=== PATIENT | male | born 1985 | race Caucasian/White ===

== ENCOUNTER 2017-03-25 09:11 | Observation (INO) | payer OTHER ==
[2017-03-25 10:51] LABS: Hematocrit 49 % (42-52); Mean Corpuscular HGB Conc 33 g/dl (31-36); Mean Corpuscular Hemoglobin 31 pg (27-31); Mean Corpuscular Volume 93 fL (80-94); Mean Platelet Volume 10 um3 (7.4-10.4); Red Blood Count 5.25 10^6/ul (4.0-5.4); Red Cell Distribution Width 13 % (10.5-15); White Blood Count 16.6 10^3/ul (3.5-10.8)
[2017-03-25 10:53] LABS: Urine Bilirubin Negative (Negative); Urine Glucose 3+(>=500 mg/dL) (Negative); Urine Nitrite Negative (Negative)
[2017-03-25] MEDS ORDERED: NS 0.9% 1000 ML* 1,000 ML IV ONE ×2 (11:00→13:18)
[2017-03-25 11:01] LABS: ALT 17 U/L (7-52); AST 15 U/L (13-39); Albumin 4.1 g/dL (3.2-5.2); Alkaline Phosphatase 101 U/L (34-104); Amylase 40 U/L (29-103); Anion Gap 19 mmol/L (2-11); BUN/Creatinine Ratio 18.8 (8-20); Blood Urea Nitrogen 21 mg/dL (6-24); C Reactive Protein 3.72 mg/L (< 5.00); CO2 Carbon Dioxide 18 mmol/L (22-32); Calcium 9.6 mg/dL (8.6-10.3); Chloride 94 mmol/L (101-111); Globulin 3.2 g/dL (2-4); Lipase 10 U/L (11.0-82.0); Potassium 5.2 mmol/L (3.5-5.0); Sodium 131 mmol/L (133-145); Total Protein 7.3 g/dL (6.4-8.9)
[2017-03-25 11:02] LABS: Glucose 565 mg/dL (70-100)
[2017-03-25 11:37] LABS: Venous Bicarbonate HCO3 12.7 mmol/L (24-28)
--- NOTE | 2017-03-25 11:39 | RAD ---
INDICATION: Diabetes. Hyperglycemia COMPARISON: None TECHNIQUE: An AP portable view obtained at 1115 hours is submitted. FINDINGS: Bones/Soft Tissues: There are no acute bony findings. Cardiomediastinal: The cardiomediastinal silhouette is normal. Lungs: There are no infiltrates. Pleura: There are no pleural effusions. Other: None IMPRESSION: NORMAL CHEST
[2017-03-25] MEDS ORDERED: NS 0.9% 1000 ML* 1,000 ML IV SCH (12:30)
[2017-03-25] MEDS ORDERED: Ondansetron INJ* 2 MG/ML VIAL IV ONE (12:31)
[2017-03-25 13:15] LABS: Creatine Kinase 33 U/L (10-223)
[2017-03-25] MEDS ORDERED: Ondansetron INJ* 2 MG/ML VIAL IV PRN (13:17)
[2017-03-25] MEDS ORDERED: Acetaminophen TAB* 325 MG PO PRN (13:17)
[2017-03-25 13:19] LABS: Alcohol < 10 mg/dL (<10)
[2017-03-25 13:32] LABS: Benzodiazepine Urine Screen None Detected (None Detect)
[2017-03-25] MEDS ORDERED: D10W 1000 ML BAG* 1,000 ML IV PRN (13:54)
[2017-03-25] MEDS ORDERED: Dextrose 50% Syringe 50 ML* 25 GM/50 ML SYRINGE IV PUSH PRN (13:57)
[2017-03-25] MEDS: Nicotine PATCH 14 MG/24 HR* PATCH TRANSDERM SCH (14:29)
--- NOTE | 2017-03-25 15:54 | HP ---
CC: Dr. Bowen at the [place] office in [facility] MEDICINE HISTORY AND PHYSICAL: DATE OF ADMISSION: 03/25/17 PRIMARY CARE PHYSICIAN: Dr. Bowen. ATTENDING PHYSICIAN: Dr. Carolynn Thurman * (dictation provided by Aida Carson NP ). CHIEF COMPLAINT: Nausea, vomiting, and elevated blood glucose. HISTORY OF PRESENT ILLNESS: Mr. Omalley is a 31-year-old male with a past medical history of type 1 diabetes, who normally maintains his blood glucose with an insulin pump. Mr. 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 Yesterday he states that he had planned to have his insulin supplies brought to [facility] by his parents, but the supplies were not delivered per his expectation to his home and therefore he has been without his insulin supplies for 3 days. Normally he would maintain his blood glucose with q. 1 hour insulin administration when he did not have his pump; however, since arriving to [facility], they have been maintaining him on a q. 4 to 6-hour insulin subcu as needed. I note per their records that his blood glucose has been running as high as 600 yesterday. It also appears that he was not on his lantus based on the medication record provided. By last evening he had gotten his blood sugar down to about 200. He slept through the night, but when he awoke this morning he was very nauseous, he was vomiting; blood glucose again was high as almost 600. Therefore he was transitioned to the emergency room for evaluation. Mr. Omalley denies any other issues. He has had no fever, no chills, no chest pain , no shortness of breath, other than the nausea and vomiting that was noted this morning. He has not had previous nausea, vomiting, or abdominal pain. He has had no diarrhea. In the emergency room Mr. Omalley was confirmed to be in diabetic ketoacidosis. He has a anion gap of 19. His pH is 7.15, pCO2 42, pO2 29, with a bicarbonate of 12.7. He has an elevated white blood cell count to 16.6. His potassium is 5.2 with a sodium of 131, lactic acid 2.4. He is mildly tachycardic with a heart rate running about 110. His blood pressure is running systolically about 110/60. PAST MEDICAL HISTORY: 1. Type 1 diabetes. 2. Hand surgery after traumatic injury. MEDICATIONS: 1. Humalog insulin p.r.n. 2. Lantus 23 units subq. q AM. ALLERGIES: To PERTUSSIS VACCINE and SERTRALINE. FAMILY HISTORY: Patient reports that there is no history of type 1 diabetes in the family, although multiple family members have had type 2 diabetes. He states "all other people on my father's side related alcohol." He also reports that there is heart disease with from [place] in his father's father and his fathers' grandfather, who both in their 60s. His mother is alive and well. She would be his healthcare proxy, her name is Marina. SOCIAL HISTORY: The patient is a current half a pack a day smoker . He denies any issues with alcohol abuse but was previously addicted to methamphetamine. He states he has been clean for 3 weeks. REVIEW OF SYSTEMS: A 14-point review of systems was completed with Mr. Omalley , and all those not mentioned above were negative. PHYSICAL EXAMINATION GENERAL: Mr. Omalley is sitting up in the bed. He is in no acute distress. VITAL SIGNS: Temperature 98.7, heart rate 116, respiratory rate 20, O2 saturation 99% on room air, blood pressure 110/67. LUNGS: Clear to auscultation bilaterally with no accessory muscle use and good aeration. HEART: S1, S2. No murmur, rub or gallop and regular. ABDOMEN: Soft and nontender with bowel sounds positive x4. EXTREMITIES: No cyanosis, no edema. NEURO: He is alert. He is oriented x3. He moves all extremities equal. There is no facial asymmetry or focal weakness. Extraocular movements are intact. SKIN: Intact. LABORATORY DATA: WBC 16.6, hemoglobin 16.0, hematocrit 49, platelet count 260 , INR 0.83. PH 7.15, pCO2 42, pO2 29, bicarbonate 12.7. Sodium 131, potassium 5.2, chloride 94, serum bicarbonate 18, BUN 21, creatinine 1.12, anion gap 19, glucose 565, repeat check at 1 o'clock shows it to be 454. Lactic acid is 2.4. Lipase is 10, CRP 3.72. Urine shows 2+ ketones, 3+ glucose. Tox screen is negative. Chest x-ray shows a normal chest x-ray. EKG shows sinus tachycardia with no evidence of ischemia, but does show some prominent T-waves. ASSESSMENT AND PLAN: Mr. Omalley is a 31-year-old male with past medical history of type 1 diabetes, he checked himself into [facility] yesterday for methamphetamine addiction. He normally manages with an insulin pump, but did not have insulin supplies and therefore presents today with diabetic ketoacidosis. Our plans are for observation in the hospital for the followin. Diabetic ketoacidosis: Patient has mild diabetic ketoacidosis. I suspect that he will have good control of his glucose and resolution of anion gap quickly with intravenous fluids and insulin. He appears to have 1 L of IV fluids in the emergency room. We will continue with an additional liter and then he will have normal saline until his blood glucose falls below 200, and at that time we can switch over to D5 half-normal saline. He is currently on a regular insulin drip, we will continue with that with titration per protocol. His potassium is 5.2, plan to recheck in 4 hours. I see no other inciting reason for his diabetic ketoacidosis, other than the fact that he was not following his normal routine as he did not have his insulin supplies. I did speak with the patient about contacting his parents to have them bring his insulin supplies here to the hospital prior to discharge tomorrow. 2. Code Status: Full code. 3. DVT prophylaxis: Regular ambulation. 4. Disposition: To intensive care unit. TIME SPENT: Approximately 60 minutes was spent on the admission of this patient , more than half the time spent with her at the bedside reviewing the events leading up to this hospitalization, performing the physical examination, and reviewing the plan of care. AIDA CARSON, AUTUMN [id number]/CPS #: [id number] LORNE
[2017-03-25] MEDS ORDERED: D5NS 0.9% 1000 ML BAG* 1,000 ML IV SCH (16:51)
[2017-03-25] MEDS ORDERED: D5W 1/2 NS 1000 ML BAG* 1,000 ML IV SCH ×2 (17:00→18:14)
[2017-03-25 17:06] LABS: BUN/Creatinine Ratio 18.1 (8-20); Calcium 8.8 mg/dL (8.6-10.3); EGFR African American 106.7 (>60); EGFR Non-African American 82.9 (>60); Potassium 3.7 mmol/L (3.5-5.0)
--- NOTE | 2017-03-25 17:20 | ED ---
Maddi Rosario Alfonso, scribed for Elizabeth Hernandez MD on 03/25/17 at 1102 . Abdominal Pain/Male - HPI Summary HPI Summary: This patient is a 31 year old M BIBA from [facility] to [facility] with a chief complaint of lower abdominal pain since yesterday. He is at [facility] for methamphetamine abuse last used 2.5 weeks ago. He also reports prior oxycodone abuse. He did not have is insulin pump yesterday. The patient rates the pain currently 0/10 in severity. Symptoms aggravated by nothing. Symptoms alleviated by nothing. Patient reports N/V. Patient denies CP, and SOB. He states he takes 1.4 units every hour on his insulin pump. His library clerk is JACE Stewart.PMHx includes Type 1 IDDM and CVA (at [place] 02/01). - History of Current Complaint Chief Complaint: EDDiabeticProb Stated Complaint: DIABETIC ISSUES Time Seen by Provider: 03/25/17 10:17 Hx Obtained From: Patient Onset/Duration: Sudden Onset, Lasting Days, Still Present Timing: Constant Severity Initially: Moderate Severity Currently: Moderate Pain Intensity: 0 Pain Scale Used: 0-10 Numeric Location: Other - Lower Aggravating Factor(s): Nothing Alleviating Factor(s): Nothing Associated Signs And Symptoms: Positive: Other - N/V. Patient denies CP, and SOB. - Allergies/Home Medications Allergies/Adverse Reactions: Allergies Allergy/AdvReac Type Severity Reaction Status Date / Time Pertussis Vaccine Allergy Swelling Verified 03/25/17 11:55 Sertraline [From Zoloft] Allergy Swelling Verified 03/25/17 11:55 Of Face,Lips,& Throat Home Medications: Home Medications Acetaminophen TAB* [Tylenol TAB*] 325 - 650 mg PO Q6H PRN MDD 3500 mg 03/25/17 [ History Confirmed 03/25/17] Aspirin TAB* [Aspirin 325 MG TAB*] 325 mg PO ONCE PRN 03/25/17 [History Confirmed 03/25/17] Bismuth Subsalicylate 524 mg PO Q6HR PRN 03/25/17 [History Confirmed 03/25/17] Calcium Carbonate CHEW TAB* [Tums*] 500 - 1,000 mg PO BID PRN 03/25/17 [History Confirmed 03/25/17] Docusate CAP* [Colace Cap*] 100 mg PO BID PRN 03/25/17 [History Confirmed ] Ibuprofen TAB* [Advil TAB*] 200 - 400 mg PO Q6H PRN 03/25/17 [History Confirmed 03/25/17] Insulin Lispro [Humalog] 0 - 100 unit SUBCUT DAILY 03/25/17 [History Confirmed 03/25/17] Magnesium Hydroxide LIQ* [Milk of Magnesia LIQ*] 30 ml PO DAILY PRN 03/25/17 [ History Confirmed 03/25/17] Melatonin 5 mg PO BEDTIME PRN 03/25/17 [History Confirmed 03/25/17] Multiple Vitamin [Multiple Vitamins] 1 tab PO DAILY 03/25/17 [History Confirmed 03/25/17] Nicotine PATCH 21 MG/24 HR* 21 mg TRANSDERM DAILY 03/25/17 [History Confirmed ] Polyethylene Glycol 3350* [Miralax*] 17 gm PO DAILY PRN 03/25/17 [History Confirmed 03/25/17] Throat Lozenges [Cough Drops Menthol] 1 mayur PO Q2HR PRN 03/25/17 [History Confirmed 03/25/17] diPHENhydraMINE PO* [Benadryl PO 25 MG TAB*] 25 - 50 mg PO Q6H PRN 03/25/17 [ History Confirmed 03/25/17] guaiFENesin ER TAB [Mucinex*] 600 - 1,200 mg PO BID PRN 03/25/17 [History Confirmed 03/25/17] PMH/Surg Hx/FS Hx/Imm Hx Endocrine/Hematology History: Reports: Hx Diabetes - Type 1 Neurological History: Reports: Hx CVA Infectious Disease History: No Infectious Disease History: Denies: Traveled Outside the [place] in Last 30 Days - Family History Known Family History: Positive: Cardiac Disease, Diabetes - Social History Alcohol Use: Rare Hx Substance Use: Yes Substance Use Type: Reports: Other - methamphetamine and oxycodone Review of Systems Negative: Chest Pain Negative: Shortness Of Breath Positive: Vomiting, Nausea All Other Systems Reviewed And Are Negative: Yes Physical Exam Triage Information Reviewed: Yes Vital Signs On Initial Exam: Initial Vitals Temp Pulse Resp BP Pulse Ox 98.7 F 96 20 108/62 98 03/25/17 10:03/25/17 10:03/25/17 10:03/25/17 10:03/25/17 10:09 Vital Signs Reviewed: Yes Appearance: Positive: No Pain Distress, Well-Nourished, Ill-Appearing Skin: Positive: Warm, Skin Color Reflects Adequate Perfusion Head/Face: Positive: Normal Head/Face Inspection Eyes: Positive: Conjunctiva Clear ENT: Positive: Normal ENT inspection Neck: Positive: Supple Respiratory/Lung Sounds: Positive: Clear to Auscultation, Breath Sounds Present , Other - no respiratory distress Cardiovascular: Positive: RRR, Pulses are Symmetrical in both Upper and Lower Extremities, Other - brisk capillary refill. Negative: Murmur Abdomen Description: Positive: Soft, Other: - Minimal diffuse abdominal tenderness Bowel Sounds: Positive: Present Musculoskeletal: Positive: Strength/ROM Intact Neurological: Positive: Sensory/Motor Intact, Alert, Oriented to Person Place, Time, CN Intact II-III, Other - Hand and feet peripheral neuropathy. Psychiatric: Positive: Normal Diagnostics - Vital Signs Vital Signs Temp Pulse Resp BP Pulse Ox 03/25/17 10:41 113 20 110/67 98 03/25/17 10:09 98.7 F 96 20 108/62 98 - Laboratory Lab Results: Lab Results 03/25/17 Range/Units 10:30 Urine Color Straw Urine Appearance Clear Urine pH 5.0 (5-9) Ur Specific [place] 1.024 (1.010-1.030) Urine Protein Negative (Negative) Urine Ketones 2+ H (Negative) Urine Blood Negative (Negative) Urine Nitrate Negative (Negative) Urine Bilirubin Negative (Negative) Urine Urobilinogen Negative (Negative) Ur Leukocyte Esterase Negative (Negative) Urine Glucose 3+(>=500 mg/dl) H (Negative) Result Diagrams: 03/25/17 10:04 03/25/17 16:40 Lab Statement: Any lab studies that have been ordered have been reviewed, and results considered in the medical decision making process. - Radiology CXR Radiology Interpretation Completed By: Radiologist - NORMAL CHEST. ED physician has reviewed this radiology report and agrees. - EKG 1118 Cardiac Rate: Tachycardia - BPM 109 EKG Rhythm: Sinus Tachycardia EKG Interpretation: Normal AV/IV CT. Normal QTc. NAC EKG Comparison: Other - No prior to compare to. Abdominal Pain Fem Course/Dx - Course Assessment/Plan: This patient is a 31 year old M BIBA from [facility] to [facility] with a chief complaint of lower abdominal pain since yesterday. He is at [facility] for methamphetamine abuse last used 2.5 weeks ago. He also reports prior oxycodone abuse. He did not have is insulin pump yesterday. The patient rates the pain currently 0/10 in severity. Symptoms aggravated by nothing. Symptoms alleviated by nothing. Patient reports N/V. Patient denies CP, and SOB. He states he takes 1.4 units every hour on his insulin pump. His library clerk is JACE Stewart.PMHx includes Type 1 IDDM and CVA (at [place] 02/01). EKG reveals sinus tachycardia. CXR reveals NORMAL CHEST. ED physician has reviewed this radiology report and agrees. Consulted Dr. Thurman (hospitalist) who agrees to admit. Patient will be admitted with follow up from Dr. Thurman. The patient is agreeable with this plan. - Provider Notifications Discussed Care Of Patient With: Carolynn Thurman Time Discussed With Above Provider: 12:19 Instructed by Provider To: Other - Consulted Dr. Thurman (hospitalist) who agrees to admit. Discharge - Discharge Plan Condition: Stable Disposition: ADMITTED TO [facility] The documentation as recorded by the Maddi murdock Alfonso accurately reflects the service I personally performed and the decisions made by me, Elizabeth Hernandez MD.
[2017-03-25] MEDS ORDERED: Insulin GLARGINE(*) 1 UNITS UNIT SUBCUT ONE (21:00)
[2017-03-25] MEDS ORDERED: Nicotine Patch Removal NOTE PATCH OFF SCH (21:00)
[2017-03-25] MEDS: Insulin LISPRO* 1 UNITS UNIT SUBCUT SCH (21:45)
[2017-03-26] MEDS: Insulin LISPRO* 1 UNITS UNIT SUBCUT SCH ×3 (02:26→10:23)
[2017-03-26 05:45] LABS: Hematocrit 42 % (42-52); Hemoglobin 14.1 g/dl (14.0-18.0); Mean Corpuscular HGB Conc 34 g/dl (31-36); Mean Corpuscular Hemoglobin 31 pg (27-31); Mean Corpuscular Volume 91 fL (80-94); Mean Platelet Volume 9 um3 (7.4-10.4); Red Cell Distribution Width 12 % (10.5-15); White Blood Count 12.6 10^3/ul (3.5-10.8)
[2017-03-26 05:57] LABS: BUN/Creatinine Ratio 18.8 (8-20); Calcium 8.7 mg/dL (8.6-10.3); EGFR African American 136.1 (>60); EGFR Non-African American 105.8 (>60)
[2017-03-26] MEDS ORDERED: Insulin LISPRO* 1 UNITS UNIT SUBCUT SCH (07:30)
[2017-03-26] MEDS: Nicotine PATCH 14 MG/24 HR* PATCH TRANSDERM SCH (10:57)
[2017-03-26 14:58] VITALS: BP 121/85
--- NOTE | 2017-03-27 06:12 | DS ---
CC: Dr. Jace Bowen [facility], phone# [phone] * DISCHARGE SUMMARY: DATE OF ADMISSION: 03/25/17 DATE OF DISCHARGE: 03/26/17 PRIMARY CARE PROVIDER: Dr. Jace Bowen. DISCHARGE DIAGNOSIS: Mild diabetic ketoacidosis. SECONDARY DIAGNOSIS: Type 1 diabetes. MEDICATION LIST: 1. Humalog insulin through insulin pump at 1.4 units an hour and sliding scale as the patient was doing before. 2. MiraLAX 17 g p.o. daily as needed for constipation. 3. Tums 500 to 1000 mg p.o. b.i.d. as needed for indigestion. 4. Multivitamin 1 tablet p.o. daily. 5. Milk of magnesia 30 mL p.o. daily as needed for constipation. 6. Melatonin 5 mg p.o. at bedtime as needed for insomnia. 7. Ibuprofen 200 to 400 mg p.o. q.6 hours p.r.n. pain. 8. Guaifenesin ER 600 to 1200 mg p.o. b.i.d. p.r.n. cough. 9. Colace 100 mg p.o. b.i.d. p.r.n. constipation. 10. Throat lozenges, 1 lozenge p.o. q.2 hours p.r.n. cough. 11. Bismuth subsalicylate 425 mg p.o. q.6 hours p.r.n. indigestion. 12. Benadryl 25/250 mg p.o. q.6 hours p.r.n. allergy. 13. Aspirin 325 mg p.o. daily as needed for pain. 14. Acetaminophen 325 to 650 mg p.o. q.6 hours p.r.n. pain. 15. Nicotine patch 21 mg topical daily. HOSPITAL COURSE: Mr. Omalley is a 31-year-old male with a past medical history as stated above, who normally controls his blood glucose with an insulin pump. He has addiction to methamphetamine and he admitted himself voluntarily to [facility]. His parents were supposed to deliver his insulin supplies to [facility] yesterday, but this did not happen, so he was without insulin prior to admission , trying to manage with a sliding scale, but his glucose got uncontrolled, running as high as 600. For more details of his presentation, I refer you to his history and physical. In the emergency room, the patient was found to have leukocytosis and his chemistry showed a glucose of 565 with a bicarb of 18, anion gap of 19. VBG showed a pH of 7.15 with CO2 of 42, bicarb of 12. The patient was admitted to the intensive care unit under the impression of mild diabetic ketoacidosis. He was started on insulin drip with quick resolution of his symptoms, control of his sugar, resolution of acidosis, and closure of his anion gap. The patient was started on a consistent carb diet and his insulin pump was delivered to the hospital and he has done well with reasonable glycemic control. He was felt to be stable for discharge to return to [facility] to continue his rehabilitation process. PHYSICAL EXAMINATION: Vital Signs: Temperature 97.8, heart rate is 91, respiratory rate is 16, oxygen saturation is 100% on room air, blood pressure is 121/85. General: The patient is a young male, lying in bed, in no acute distress. CVS: Normal S1, S2. Regular rate and rhythm. Chest: Breath sounds present bilaterally with no added sounds. Abdomen: Soft. Bowel sounds are present. Extremities: No edema. Neuro: He is alert and oriented x3. Able to move all 4 extremities. DIET: Consistent carb diet. ACTIVITIES: As tolerated. DISPOSITION: To [facility]. STATUS WHILE IN THE HOSPITAL: Observation. Please keep in mind this is a summarized version of this patient's hospital stay. If you need more information, please feel free to call me at [phone] or please obtain the full medical records. TIME SPENT: Approximately 45 minutes was spent to complete this discharge. [id number]/[facility] #: [id number] MTDD
== END 2017-03-26 15:15 | disposition home or self-care (01) ==
LOC: ED 09:11 → INTOOBSV 12:22 → ICU 12:22
PROVIDERS: ADMIT Hospitalist; ATTEND Internal Medicine
DX: E10.10 Type 1 diabetes mellitus with ketoacidosis without coma (principal); Z79.4 Long term (current) use of insulin; D72.829 Elevated white blood cell count, unspecified; R00.0 Tachycardia, unspecified; F17.210 Nicotine dependence, cigarettes, uncomplicated; F15.20 Other stimulant dependence, uncomplicated; R10.30 Lower abdominal pain, unspecified; Z79.899 Other long term (current) drug therapy; R11.2 Nausea with vomiting, unspecified
CPT/HCPCS: 36415; 71010; 80048; 80053; 80307; 80320; 81003; 82150; 82550; 82803; 82947; 83605; 83690; 83735; 84484; 85025; 85610; 85730; 86140; 87641; 93005; 96374; 99283; 99406; A9270-GY; G0378; G0480; J2405